=== PATIENT | male | born 1940 | race Caucasian/White ===

== ENCOUNTER 2019-02-11 18:41 | Emergency (ER) | payer MEDICARE, BC ==
[~2019-02-11] VITALS: Ht 172.7 cm; Wt 74.8 kg
== END 2019-02-11 20:38 | disposition home or self-care (01) ==
LOC: ER 18:41
DX: S80.02XA Contusion of left knee, initial encounter (principal); S00.01XA Abrasion of scalp, initial encounter; R51 Headache; Z86.73 Personal history of transient ischemic attack (TIA), and cerebral infarction without residual deficits; W18.09XA Striking against other object with subsequent fall, initial encounter; Y93.01 Activity, walking, marching and hiking; Y92.480 Sidewalk as the place of occurrence of the external cause; Y99.8 Other external cause status
CPT/HCPCS: 70450-TC; 72125-TC; 73564-TC